=== PATIENT | female | born 2000 | race Caucasian/White ===

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

== ENCOUNTER 2019-06-22 23:39 | Emergency (ER) | payer OTHER ==
[~2019-06-22] VITALS: Ht 157 cm; Wt 56.8 kg
[2019-06-23 00:35] LABS: BASOPHILS # (AUTO) 0.1 10^3/uL (0.0-0.1); BASOPHILS % (AUTO) 1 % (0-10); EOSINOPHILS # (AUTO) 0.1 10^3/uL (0.0-0.3); EOSINOPHILS % (AUTO) 1 % (0-10); HEMATOCRIT 36 % (35-52); HEMOGLOBIN 12.3 G/DL (11.5-16.0); LYMPHOCYTES # (AUTO) 4.9 X 10^3 (1.0-4.0); LYMPHOCYTES % (AUTO) 63 % (12-44); MEAN CORPUSCULAR HEMOGLOBIN 29 PG (25-34); MEAN CORPUSCULAR HGB CONC 34 G/DL (32-36); MEAN CORPUSCULAR VOLUME 85 FL (80-99); MEAN PLATELET VOLUME 9.5 FL (7.4-10.4); MONOCYTES # (AUTO) 0.8 X 10^3 (0.0-1.0); MONOCYTES % (AUTO) 11 % (0-12); NEUTROPHILS % (AUTO) 25 % (42-75); PLATELET COUNT 199 10^3/uL (130-400); RED CELL DISTRIBUTION WIDTH 13.1 % (10.0-14.5); WHITE BLOOD COUNT 7.9 10^3/uL (4.3-11.0)
[2019-06-23 00:55] LABS: ALANINE AMINOTRANSFERASE 201 U/L (0-55); ALBUMIN 4.4 GM/DL (3.2-4.5); ALKALINE PHOSPHATASE 170 U/L (40-136); BILIRUBIN,TOTAL 0.6 MG/DL (0.1-1.0); BUN/CREATININE RATIO 10; CALCIUM 9.7 MG/DL (8.5-10.1); CARBON DIOXIDE 23 MMOL/L (21-32); CHLORIDE 103 MMOL/L (98-107); CREATININE SERUM 0.79 MG/DL (0.60-1.30); GFR ESTIMATED > 60; GLUCOSE 93 MG/DL (70-105); POTASSIUM 3.7 MMOL/L (3.6-5.0); SODIUM 139 MMOL/L (135-145); TOTAL PROTEIN 7.8 GM/DL (6.4-8.2)
[2019-06-23 00:58] LABS: BILIRUBIN,URINE NEGATIVE (NEGATIVE); CLARITY,URINE VERY CLOUDY; COLOR,URINE YELLOW; GLUCOSE, URINE (UA) NEGATIVE (NEGATIVE); KETONES,URINE 1+ (NEGATIVE); LEUKOCYTE ESTERASE ,URINE 1+ (NEGATIVE); NITRITE,URINE NEGATIVE (NEGATIVE); PH,URINE 5 (5-9); PROTEIN,URINE 2+ (NEGATIVE)
[2019-06-23 01:07] LABS: BACTERIA,URINE FEW /HPF; RBC,URINE >100 /HPF; SQUAMOUS EPITHELIAL CELL,UR 25-50 /HPF
[2019-06-23] MEDS ORDERED: cefTRIAXone FOR IV USE 1,000 MG in WATER (STERILE) FOR INJECTION 10 ML IV ONE (01:15)
[2019-06-23] MEDS ORDERED: NITR-65 PO (02:28)
--- NOTE | 2019-06-23 02:28 | ED General ---
General Chief Complaint: General Problems/Pain Stated Complaint: LOWER BACK PAIN,TARRY VAGINAL BLOOD,HAS MONO Nursing Triage Note: Pt to RM 9 with C/O "black vaginal discharge", burning urination and left sided abd pain that radiates to left flank since yesterday. Pt states she was Dx with mono on 06/19/19. Pt has Hx of UTI's. Pt reports chills started yesterday as well. Pt denies fever, nausea, vomiting, or bowel changes. Nursing Sepsis Screen: No Definite Risk Source of Information: Patient History of Present Illness Date Seen by Provider: Jun 23, 2019 Time Seen by Provider: 00:10 Initial Comments PT ARRIVES VIA POV FROM HOME WITH MOTHER C/O "DARK BLOODY DISCHARGE" WHEN SHE URINATES--DOES NOT KNOW IF IT IS FROM HER BLADDER / URETHRA OR HER VAGINA STATES THIS HAS BEEN GOING ON FOR A COUPLE OF DAYS AND IS NO DIFFERENT TODAY IN ANY WAY C/O LEFT FLANK PAIN SINCE YESTERDAY NO ABDOMINAL PAIN HAS HAD SLIGHT PAIN ON URINATION FOR A COUPLE OF DAYS NO NAUSEA/VOMITING/DIARRHEA. HAS BEEN EATING AND DRINKING NORMALLY STATES SHE HAS HAD SOME CHILLS BUT HAS NOT CHECKED TEMP HAS NOT TAKEN ANYTHING FOR PAIN AT ANY TIME LMP 06/07/19--JUST STARTED ON OCP'S FOR THE FIRST TIME 2 WEEKS AGO. STATES SHE HAS MISSED A PILL OR TWO. PT HAS NEVER HAD A PELVIC /TOWER CLIMBER EXAM. PT STATES SHE HAS A HISTORY OF UTI'S AND GETS 1-2 INFECTIONS A YEAR, STATES IT HAS BEEN "A LONG TIME" SINCE SHE HAS HAD ONE--NONE THIS YEAR. PT WENT TO ER IN [facility] ABOUT 3 WEEKS AGO FOR URI SYMPTOMS AND WAS STARTED ON DOXYCYCLINE TWICE A DAY--HAS CONTINUED TO TAKE IT ONCE A DAY FOR ACNE--HAS NOT BEEN ON ANY MEDICATION FOR ACNE PRIOR TO THIS \\ STATES SHE WAS ALSO STARTED ON THE CONTROL PILLS AT THE SAME TIME HER DOXYCYCLINE WAS DECREASED TO ONCE A DAY, ABOUT 2 WEEKS AGO FOR ACNE. STATES SHE WENT TO [facility] ER AGAIN LAST WEEK AND WAS DX WITH MONO ON 06/19/19. 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 PCP: Rashid DORMAN AT [facility] IN [place] Allergies and Home Medications Allergies Coded Allergies: gluten (Verified Allergy, Intermediate, 06/23/19) sulfamethoxazole (Verified Allergy, Intermediate, RASH, 06/23/19) trimethoprim (Verified Allergy, Intermediate, RASH, 06/23/19) Home Medications Nitrofurantoin Monohyd/M-Cryst 100 Mg Capsule, 100 MG PO BID Prescribed by: AMILCAR TOWNSEND on 06/23/19 0228 Patient Home Medication List Home Medication List Reviewed: Yes Review of Systems Review of Systems Constitutional: chills; No fever, No malaise, No weakness EENTM: see HPI Respiratory: no symptoms reported Cardiovascular: no symptoms reported Gastrointestinal: see HPI; No abdominal pain, No loss of appetite, No nausea, No vomiting Genitourinary: see HPI, dysuria; No frequency, No hematuria, No hesitancy Musculoskeletal: see HPI, back pain (LEFT FLANK) Skin: no symptoms reported; No rash Psychiatric/Neurological: No Symptoms Reported; Denies Headache, Denies Numbness, Denies Paresthesia, Denies Seizure Hematologic/Lymphatic: No Symptoms Reported; Denies Anemia Immunological/Allergic: no symptoms reported Past Sgimizj-Eawmch-Yjtwjn Hx Patient Social History Alcohol Use: Denies Use Recreational Drug Use: No Smoking Status: Never a Smoker 2nd Hand Smoke Exposure: No Recent Foreign Travel: No Contact w/Someone Who Travel: No Recent Infectious Disease Expo: No Recent Hopitalizations: No Physical Abuse: No Sexual Abuse: No Mistreated: No Fear: No Seasonal Allergies Seasonal Allergies: No Past Medical History Surgeries: Yes Ear Surgery, Orthopedic Respiratory: Yes Asthma Cardiac: No Neurological: No : No Reproductive Disorders: No Female Reproductive Disorders: Denies Genitourinary: Yes UTI-Chronic Gastrointestinal: No Musculoskeletal: No Endocrine: Yes Hypothyroidsim HEENT: No Cancer: No Psychosocial: No Integumentary: No Blood Disorders: No Physical Exam Vital Signs Vital Signs - First Documented 06/23/19 00:05 Temp 35.9 Pulse 98 Resp 18 B/P (MAP) 111/73 (86) Pulse Ox 99 O2 Delivery Room Air Capillary Refill : Less Than 3 Seconds Height, Weight, BMI Height: '" Weight: lbs. oz. kg; 23.00 BMI Method: General Appearance: No Apparent Distress, WD/WN Neck: Full Range of Motion, Normal Inspection, Non Tender, Supple Respiratory: Normal Breath Sounds, No Accessory Muscle Use, No Respiratory Distress Cardiovascular: Regular Rate, Rhythm, No Edema, No JVD, No Murmur, Normal Peripheral Pulses Gastrointestinal: Normal Bowel Sounds, No Organomegaly, No Pulsatile Mass, Non Tender, Soft Genital/Rectal: Other (MILD AMOUNT OF THICK/OLD BLOOD IN VAGINAL CANAL. CERVIX APPEARS NORMAL. NO TENDERNESS. ) Back: Normal Inspection, No Vertebral Tenderness, CVA Tenderness (L) Extremity: Normal Range of Motion Neurologic/Psychiatric: Alert, Oriented x3, No Motor/Sensory Deficits, Normal Mood/Affect, cook roast II-XII Norm as Tested Skin: Normal Color, Warm/Dry; No Rash Progress/Results/Core Measures Suspected Sepsis Recent Fever Within 48 Hours: No Infection Criteria Present: None New/Unexplained Altered Menta: No Sepsis Screen: No Definite Risk SIRS Temperature: Pulse: 98 Respiratory Rate: 18 Laboratory Tests 06/23/19 00:27: White Blood Count 7.9 Blood Pressure 111 /73 Mean: 86 Laboratory Tests 06/23/19 00:27: Creatinine 0.79, INR Comment 0.9, Platelet Count 199, Total Bilirubin 0.6 Results/Orders Lab Results Laboratory Tests Test 06/23/19 00:27 06/23/19 00:45 Range/Units White Blood Count 7.9 4.3-11.0 10^3/uL Red Blood Count 4.22 L 4.35-5.85 10^6/uL Hemoglobin 12.3 11.5-16.0 G/DL Hematocrit 36 35-52 % Mean Corpuscular Volume 85 80-99 FL Mean Corpuscular Hemoglobin 29 25-34 PG Mean Corpuscular Hemoglobin Concent 34 32-36 G/DL Red Cell Distribution Width 13.1 10.0-14.5 % Platelet Count 199 130-400 10^3/uL Mean Platelet Volume 9.5 7.4-10.4 FL Neutrophils (%) (Auto) 25 L 42-75 % Lymphocytes (%) (Auto) 63 H 12-44 % Monocytes (%) (Auto) 11 0-12 % Eosinophils (%) (Auto) 1 0-10 % Basophils (%) (Auto) 1 0-10 % Neutrophils # (Auto) 2.0 1.8-7.8 X 10^3 Lymphocytes # (Auto) 4.9 H 1.0-4.0 X 10^3 Monocytes # (Auto) 0.8 0.0-1.0 X 10^3 Eosinophils # (Auto) 0.1 0.0-0.3 10^3/uL Basophils # (Auto) 0.1 0.0-0.1 10^3/uL Prothrombin Time 12.8 12.2-14.7 SEC INR Comment 0.9 0.8-1.4 Activated Partial Thromboplast Time 36 H 24-35 SEC Sodium Level 139 135-145 MMOL/L Potassium Level 3.7 3.6-5.0 MMOL/L Chloride Level 103 98-107 MMOL/L Carbon Dioxide Level 23 21-32 MMOL/L Anion Gap 13 5-14 MMOL/L Blood Urea Nitrogen 8 7-18 MG/DL Creatinine 0.79 0.60-1.30 MG/DL Estimat Glomerular Filtration Rate > 60 BUN/Creatinine Ratio 10 Glucose Level 93 70-105 MG/DL Calcium Level 9.7 8.5-10.1 MG/DL Corrected Calcium 9.4 8.5-10.1 MG/DL Total Bilirubin 0.6 0.1-1.0 MG/DL Aspartate Amino Transf (AST/SGOT) 200 H 5-34 U/L Alanine Aminotransferase (ALT/SGPT) 201 H 0-55 U/L Alkaline Phosphatase 170 H 40-136 U/L Total Protein 7.8 6.4-8.2 GM/DL Albumin 4.4 3.2-4.5 GM/DL Monoscreen POSITIVE H NEGATIVE Urine Color YELLOW Urine Clarity VERY CLOUDY H Urine pH 5 5-9 Urine Specific [place] 1.025 H 1.016-1.022 Urine Protein 2+ H NEGATIVE Urine Glucose (UA) NEGATIVE NEGATIVE Urine Ketones 1+ H NEGATIVE Urine Nitrite NEGATIVE NEGATIVE Urine Bilirubin NEGATIVE NEGATIVE Urine Urobilinogen NORMAL NORMAL MG/DL Urine Leukocyte Esterase 1+ H NEGATIVE Urine RBC (Auto) 5+ H NEGATIVE Urine RBC >100 H /HPF Urine WBC 2-5 /HPF Urine Squamous Epithelial Cells 25-50 H /HPF Urine Crystals NONE /LPF Urine Bacteria FEW H /HPF Urine Casts NONE /LPF Urine Mucus LARGE H /LPF Urine Culture Indicated YES My Orders Orders - AMILCAR TOWNSEND DO Ed Iv/Invasive Line Start (06/23/19 00:22) Urine Bedside (06/23/19 00:22) Straight Cath For Spec.-Adult (06/23/19 00:22) Cbc With Automated Diff (06/23/19 00:22) Comprehensive Metabolic Panel (06/23/19 00:22) Ua Culture If Indicated (06/23/19 00:22) Urine Culture (06/23/19 00:45) Ct Abd/Pelvis Wo(Kidney Stone) (06/23/19 01:12) Abdomen/Kub 1view (06/23/19 01:12) Ceftriaxone For Iv Use (Rocephin For I (06/23/19 01:15) Monotest (06/23/19 02:25) Protime With Inr (06/23/19 02:25) Partial Thromboplastin Time (06/23/19 02:25) Medications Given in ED Current Medications Medications Dose Ordered Sig/Page Route Start Time Stop Time Status Last Admin Dose Admin Ceftriaxone Sodium 1000 mg/ Sterile Water 10 ml @ 200 mls/hr ONCE ONCE IV 06/23/19 01:15 06/23/19 01:17 DC 06/23/19 01:42 200 MLS/HR Vital Signs/I&O 06/23/19 06/23/19 00:05 02:59 Temp 35.9 35.9 Pulse 98 75 Resp 18 18 B/P (MAP) 111/73 (86) 115/75 (86) Pulse Ox 99 99 O2 Delivery Room Air Room Air Capillary Refill : Less Than 3 Seconds Blood Pressure Mean: 86 POS Progress Note : Progress Note NO ACTIVE VAGINAL BLEEDING OR ANY OTHER SYMPTOMS DURING ER STAY LENGTHY DISCUSSION WITH PT AND MOM REGARDING TEST RESULTS, TREATMENT, AND NEED FOR FOLLOW UP WITH HER PCP TO RECHECK LABS, ETC. Diagnostic Imaging Comments KUB--NO ACUTE PROCESS, PENDING RADIOLOGIST REVIEW CT ABDOMEN/PELVIS--L5-S1 DEGENERATIVE DISC DISEASE, OTHERWISE NO ACUTE PROCESS, PER [facility] VIA FAX AT 2655 Reviewed: Reviewed by Me Departure Impression Primary Impression: Urinary tract infection Additional Impressions: Irregular menstrual bleeding Mononucleosis, infectious, with hepatitis Disposition: HOME, SELF-CARE Condition: Stable Departure-Patient Inst. Referrals: NO,LOCAL PHYSICIAN (PCP/Family) Primary Care Physician Patient Instructions: IRREGULAR VAGINAL BLEEDING, Liver Function Test, Mononucleosis (DC), Urinary Tract Infection, Adult (DC) Add. Discharge Instructions: LOTS OF CLEAR LIQUIDS--NO COFFEE, POP OR TEA AVOID TYLENOL AND ALCOHOL YOU MAY TAKE IBUPROFEN NEEDED FOR PAIN OR FEVER AVOID ANY INJURY TO YOUR ABDOMEN STOP DOXYCYCLINE WHILE TAKING MACROBID CONTINUE TAKING CONTROL PILLS EVERY DAY. FOLLOW UP WITH YOUR DR IN 7-10 DAYS FOR FURTHER CARE All discharge instructions reviewed with patient and/or family. Voiced u nderstanding. Scripts Nitrofurantoin Monohyd/M-Cryst (Macrobid 100 mg Capsule) 100 Mg Capsule 100 MG PO BID, #20 CAP Prov: AMILCAR TOWNSEND DO 06/23/19 AMILCAR TOWNSEND DO Jun 23, 2019 02:28 POS
[2019-06-23 02:37] LABS: INR 0.9 (0.8-1.4); PROTHROMBIN TIME PATIENT 12.8 SEC (12.2-14.7)
[2019-06-23 02:59] VITALS: BP 115/75
--- NOTE | 2019-06-23 05:33 | Diagnostic Imaging Report ---
INDICATION: Lower back pain COMPARISON: None FINDINGS: Single supine radiographic view of the abdomen was obtained and demonstrates nondistended loops of small bowel. There is no large collection of free peritoneal air. Mild air and stool are seen scattered throughout the colon. No unexpected extraosseous calcifications or radiopaque foreign bodies are seen. Bony structures show no gross acute abnormalities. IMPRESSION: 1. Nonobstructed small bowel gas pattern. Dictated by: Dictated on workstation # [id number]
--- NOTE | 2019-06-23 06:31 | Diagnostic Imaging Report ---
CT ABD/PELVIS WO(KIDNEY STONE) TECHNIQUE: Unenhanced CT imaging of the abdomen and pelvis was performed. 2-D reformats are created and submitted for interpretation. Automatic exposure controls were utilized to optimize patient dose. INDICATION: Low back pain COMPARISON: None available FINDINGS: Evaluation of the abdominal viscera is mildly limited without contrast. Lower chest: The lung bases are clear. No pericardial or pleural effusion. Peritoneum: No free intraperitoneal air or fluid. Liver and biliary system: Unenhanced liver is normal. The gallbladder is normal. No biliary duct dilation. Spleen and Pancreas: Spleen is normal. Unenhanced pancreas is grossly normal. Adrenals: Normal. tract: No renal or ureteral calculi. No obstructive uropathy. Urinary bladder is partially filled but incomplete distention limits assessment for wall thickening. Uterus and ovaries are normal in appearance. GI tract: Stomach is partially filled with air and there is no definitive wall thickening. No bowel obstruction. No pericolonic inflammatory changes. Normal appendix. Vasculature and Lymph nodes: Normal caliber aorta. No abdominal or pelvic lymphadenopathy. Musculoskeletal: No concerning osseous lesion. Central disc protrusion at L5-S1 does not appear to compress the S1 nerve roots in the lateral recess. IMPRESSION: 1. No urinary tract calculi or obstructive uropathy. 2. Central disc protrusion at L5-S1 does not appear to result in nerve compression. However, this could be a source of focal pain if this is a recent injury. Dictated by: Dictated on workstation # [id number]
== END 2019-06-23 03:00 | disposition home or self-care (01) ==
LOC: EDUNIT# 23:39 → ER 23:44
DX: N39.0 Urinary tract infection, site not specified (principal); N92.6 Irregular menstruation, unspecified; B27.99 Infectious mononucleosis, unspecified with other complication; K75.9 Inflammatory liver disease, unspecified; J45.909 Unspecified asthma, uncomplicated; E03.9 Hypothyroidism, unspecified; Z88.2 Allergy status to sulfonamides; Z88.1 Allergy status to other antibiotic agents; Z88.8 Allergy status to other drugs, medicaments and biological substances
CPT/HCPCS: 36415; 51701; 74018; 74176; 80053; 81000; 84703; 85025; 85610; 85730; 86308; 87088